=== PATIENT | female | born 1980 | race Caucasian/White ===

== ENCOUNTER → 2020-09-21 | Outpatient (CLI) | payer OTHER ==
[~2020-09-21] MED LIST: ASPIRIN325; AZITHROMYCIN; FISH OIL + VIT1 EACH PO; MULTIVITAMINS1 EAC7 PO; NOHOMEMEDICATIONS; NORCO 5-325 TA1 EACH PO; PERCOCET 10-321 EAC1 PO; PHENERGAN25 MG RE; PROTONIX40 M2 PO; SUDAFED30 MG; VITAMIN D 5050000 I1; VITAMIN D3100 MCG PO; ZOFRAN 4 MG ORAL4 M1 DIS
== END ==
LOC: M.LAB 08:09
PROVIDERS: ATTEND Surgery
DX: Z01.812 Encounter for preprocedural laboratory examination (principal); Z20.822 Contact with and (suspected) exposure to COVID-19; L72.9 Follicular cyst of the skin and subcutaneous tissue, unspecified; K82.8 Other specified diseases of gallbladder

== ENCOUNTER 2020-09-27 19:19 | Emergency (ER) | payer OTHER ==
[~2020-09-27] VITALS: Ht 170.2 cm; Wt 83.9 kg
[~2020-09-27 19:19] MED LIST changes: -PERCOCET 10-321 EAC1 PO; -PROTONIX40 M2 PO; -VITAMIN D3100 MCG PO
[2020-09-27] MEDS ORDERED: PERCOCET 10-321 EAC1 PO (19:32)
[2020-09-27] MEDS ORDERED: PROTONIX40 M2 PO (19:32)
[2020-09-27] MEDS ORDERED: VITAMIN D3100 MCG PO (19:33)
[2020-09-27 20:50] LABS: ABSOLUTE BASOPHILS 0.1 thou/uL (0.0-0.2); ABSOLUTE LYMPHOCYTES 2.6 thou/uL (0.8-5.3); ABSOLUTE MONOCYTES 0.6 thou/uL (0.0-1.2); ABSOLUTE NEUTROPHILS 4.6 thou/uL (1.6-8.1); BASOPHILS 0.9 %; EOSINOPHILS 0.2 %; HEMATOCRIT 41.2 % (37.0-47.0); HEMOGLOBIN 13.8 gm/dL (12.0-15.0); LYMPHOCYTES 32.7 %; MCH 29.2 pg (26.0-34.0); MCHC 33.5 g/dL (28.0-37.0); MONOCYTES 7.6 %; MPV 10.1 fl. (7.2-11.1); NUCLEATED RBCS 0 /100WBC; PLATELET COUNT* 175 thou/uL (150-400); POLYS 58.6 %; RBC 4.74 mil/uL (4.20-5.00); RDW-CV 13.7 % (10.5-14.5); WBC 7.9 thou/uL (4.0-11.0)
[2020-09-27 20:59] LABS: CALCIUM 9.2 mg/dL (8.5-10.1); POTASSIUM 3.3 mmol/L (3.5-5.1)
[2020-09-27 22:06] LABS: URINE BILIRUBIN NEGATIVE (Negative); URINE BLOOD NEGATIVE (Negative); URINE CLARITY CLEAR; URINE COLOR YELLOW; URINE GLUCOSE-RANDOM NEGATIVE (Negative); URINE KETONES TRACE (Negative); URINE LEUKOCYTES-REFLEX NEGATIVE (Negative); URINE NITRITE-REFLEX NEGATIVE (Negative); URINE PROTEIN NEGATIVE (Negative); URINE SPECIFIC GRAVITY <= 1.005 (1.005-1.030); URINE UROBILINOGEN 0.2 E.U./dl (0.2-1.0)
[2020-09-27 23:04] VITALS: BP 132/68
== END 2020-09-27 23:04 | disposition home or self-care (01) ==
LOC: M.ERS 19:19
PROVIDERS: Emergency Medicine
DX: H57.04 Mydriasis (principal); G43.909 Migraine, unspecified, not intractable, without status migrainosus; Z88.1 Allergy status to other antibiotic agents; Z88.0 Allergy status to penicillin